=== PATIENT | male | born 1965 | race Caucasian/White ===

== ENCOUNTER 2018-02-06 09:15 | Emergency (ER) | payer OTHER, BC ==
[2018-02-06] MEDS ORDERED: Sodium Chloride 0.9% 10 ML Syringe FLUSH PRN (10:11)
[2018-02-06] MEDS ORDERED: Sodium Chloride 0.9% 1,000 ML IV SCH (10:15)
--- NOTE | 2018-02-06 11:47 | EDM.PDOC ---
ED HPI GENERAL MEDICAL PROBLEM - General Chief Complaint: Cardiovascular Problem Stated Complaint: SENT FROM [facility] Time Seen by Provider: 02/06/18 09:51 Source of Information: Reports: Patient History Limitations: Reports: No Limitations - History of Present Illness INITIAL COMMENTS - FREE TEXT/NARRATIVE: The patient was sent from the walk in clinic for dizziness. He said he woke up this morning not feeling right. He has some dizziness that he describes as lightheadedness. He was at work and had to leave because there was a couple of times that he nearly passed out. He has no chest pain or shortness of breath. He has a slight headache in the frontal area. He recently had a physical at the [facility] and they found his blood pressure was elevated. They did put him on a medicine for this but he did not start taking it yet. He has no double vision, blurred vision, fever, chills, abdominal pain, nausea or vomiting. He does not have much of an appetite now. He was not very active this weekend and did not over exert himself. Onset: Gradual Duration: Hour(s): Location: Reports: Head Quality: Reports: Ache Severity: Mild Improves with: Reports: None Worsens with: Reports: None Associated Symptoms: Reports: Headaches. Denies: Confusion, Chest Pain, Cough, Fever/Chills, Nausea/Vomiting, Shortness of Breath - Related Data Allergies Allergy/AdvReac Type Severity Reaction Status Date / Time anti-diarrheal Allergy Cannot Uncoded 02/06/18 09:45 Remember Home Meds: Home Meds . [Unable to Verify Home Med List] 02/06/18 [History] Past Medical History Cardiovascular History: Reports: Hypertension - Past Surgical History GI Surgical History: Reports: Appendectomy Musculoskeletal Surgical History: Reports: Shoulder Surgery Social & Family History - Tobacco Use Smoking Status *Q: Never Smoker - Caffeine Use Caffeine Use: Reports: Coffee, Soda - Recreational Drug Use Recreational Drug Use: No ED ROS GENERAL - Review of Systems Review Of Systems: See Below Constitutional: Reports: No Symptoms HEENT: Reports: No Symptoms Respiratory: Reports: No Symptoms Cardiovascular: Reports: Lightheadedness. Denies: Chest Pain Endocrine: Reports: No Symptoms GI/Abdominal: Reports: No Symptoms : Reports: No Symptoms Musculoskeletal: Reports: No Symptoms ED EXAM, GENERAL - Physical Exam Exam: See Below Exam Limited By: No Limitations General Appearance: Alert, No Apparent Distress Ears: Normal External Exam Nose: Normal Inspection Head: Atraumatic, Normocephalic Neck: Normal Inspection Respiratory/Chest: No Respiratory Distress, Lungs Clear, Normal Breath Sounds Cardiovascular: Regular Rate, Rhythm, No Edema, No Murmur GI/Abdominal: Soft, Non-Tender, No Organomegaly, No Mass Back Exam: Normal Inspection Extremities: Normal Inspection Neurological: Alert, Oriented, No Motor/Sensory Deficits EKG INTERPRETATION EKG Date: 02/06/18 Time: 11:50 Rhythm: NSR Rate (Beats/Min): 71 [place]: Normal P-Wave: Present QRS: Normal ST-T: Normal QT: Normal Course - Vital Signs Last Recorded V/S: Last Vital Signs Temp 97.2 F 02/06/18 09:45 Pulse 80 02/06/18 09:45 Resp BP 176/109 H 02/06/18 09:45 Pulse Ox 100 02/06/18 09:45 - Orders/Labs/Meds Orders: Active Orders 24 hr Category Date Time Status Cardiac Monitoring [RC] . DIRECTED Care 02/06/18 10:11 Active EKG Documentation Completion [RC] ASDIRECTED Care 02/06/18 10:01 Active Peripheral IV Care [RC] . DIRECTED Care 02/06/18 10:12 Active Head wo Cont [CT] Stat Exams 02/06/18 10:12 Taken Sodium Chloride 0.9% [Normal Saline] 1,000 ml Med 02/06/18 10:15 Active IV .BOLUS Sodium Chloride 0.9% [Saline Flush] Med 02/06/18 10:11 Active 10 ml FLUSH ASDIRECTED PRN Peripheral IV Insertion Adult [OM.PC] Stat Oth 02/06/18 10:11 Ordered EKG 12 Lead [EK] Stat Ther 02/06/18 10:01 Ordered Medication Orders Sodium Chloride (Normal Saline) 1,000 mls @ 1,000 mls/hr IV .BOLUS KENZIE Last Admin: 02/06/18 10:38 Dose: 1,000 mls/hr Sodium Chloride (Saline Flush) 10 ml FLUSH ASDIRECTED PRN PRN Reason: Keep Vein Open Last Admin: 02/06/18 10:38 Dose: 10 ml Labs: Laboratory Tests 02/06/18 02/06/18 Range/Units 10:15 10:15 WBC 5.70 (4.23-9.07) K/mm3 RBC 4.74 (4.63-6.08) M/mm3 Hgb 14.5 (13.7-17.5) gm/L Hct 40.7 (40.1-51.0) % MCV 85.9 (79.0-92.2) fl MCH 30.6 (25.7-32.2) pg MCHC 35.6 H (32.2-35.5) g/dl RDW Std Deviation 37.7 (35.1-43.9) fL Plt Count 236 (163-337) K/mm3 MPV 10.1 (9.4-12.3) fl Neut % (Auto) 70.5 H (34.0-67.9) % Lymph % (Auto) 19.3 L (21.8-53.1) % Hunt % (Auto) 8.2 (5.3-12.2) % Eos % (Auto) 1.4 (0.8-7.0) Baso % (Auto) 0.4 (0.1-1.2) % Neut # (Auto) 4.02 (1.78-5.38) K/mm3 Lymph # (Auto) 1.10 L (1.32-3.57) K/mm3 Hunt # (Auto) 0.47 (0.30-0.82) K/mm3 Eos # (Auto) 0.08 (0.04-0.54) K/mm3 Baso # (Auto) 0.02 (0.01-0.08) K/mm3 Sodium 141 (136-145) mEq/L Potassium 3.3 L (3.5-5.1) mEq/L Chloride 106 (98-107) mEq/L Carbon Dioxide 26 (21-32) mEq/L Anion Gap 12.3 (5-15) BUN 6 L (7-18) mg/dL Creatinine 1.0 (0.7-1.3) mg/dL Est Cr Clr Drug Dosing 90.24 mL/min Estimated GFR (MDRD) > 60 (>60) mL/min BUN/Creatinine Ratio 6.0 L (14-18) Glucose 105 (74-106) mg/dL Calcium 8.5 (8.5-10.1) mg/dL Total Bilirubin 0.5 (0.2-1.0) mg/dL AST 22 (15-37) U/L ALT 43 (16-63) U/L Alkaline Phosphatase 91 (46-116) U/L Troponin I < 0.017 (0.00-0.056) ng/mL Total Protein 6.8 (6.4-8.2) g/dl Albumin 3.6 (3.4-5.0) g/dl Globulin 3.2 gm/dL Albumin/Globulin Ratio 1.1 (1-2) Meds: Medications Generic Name Dose Route Start Last Admin Trade Name Freq PRN Reason Stop Dose Admin Sodium Chloride 1,000 mls @ 1,000 mls/hr 02/06/18 10:15 02/06/18 10:38 Normal Saline IV 1,000 mls/hr .BOLUS KENZIE Administration Sodium Chloride 10 ml 02/06/18 10:11 02/06/18 10:38 Saline Flush FLUSH 10 ml ASDIRECTED PRN Administration Keep Vein Open - Re-Assessments/Exams Free Text/Narrative Re-Assessment/Exam: 02/06/18 11:48 I ordered an IV NS 1L bolus, EKG, labs and CT of his head. His EKG shows a NSR with no acute changes. His CBC and CMP look good. His troponin is negative. I am waiting for the CT of his head. 02/06/18 12:[address] of his head looks good. He feels a little better. I am not exactly sure what is causing his problems. I want him to start his blood pressure meds and see how he is does. Departure - Departure Time of Disposition: 12:30 Disposition: Home, Self-Care 01 Condition: Good Clinical Impression: Lightheaded Hypertension Qualifiers: Hypertension type: essential hypertension Qualified Code(s): I10 - Essential ( primary) hypertension Referrals: PCP,None [Primary Care Provider] - Forms: ED Department Discharge Additional Instructions: Start your blood pressure medication. Rest for a couple of days. Drink plenty of fluids. Follow up with your doctor in 1 week. Please return if you are worse. - My Orders Last 24 Hours: My Active Orders 02/06/18 10:01 EKG Documentation Completion [RC] ASDIRECTED EKG 12 Lead [EK] Stat 02/06/18 10:11 Cardiac Monitoring [RC] . DIRECTED Sodium Chloride 0.9% [Saline Flush] 10 ml FLUSH ASDIRECTED PRN Peripheral IV Insertion Adult [OM.PC] Stat 02/06/18 10:12 Peripheral IV Care [RC] . DIRECTED Head wo Cont [CT] Stat 02/06/18 10:15 Sodium Chloride 0.9% [Normal Saline] 1,000 ml IV .BOLUS - Assessment/Plan Last 24 Hours: My Active Orders 02/06/18 10:01 EKG Documentation Completion [RC] ASDIRECTED EKG 12 Lead [EK] Stat 02/06/18 10:11 Cardiac Monitoring [RC] . DIRECTED Sodium Chloride 0.9% [Saline Flush] 10 ml FLUSH ASDIRECTED PRN Peripheral IV Insertion Adult [OM.PC] Stat 02/06/18 10:12 Peripheral IV Care [RC] . DIRECTED Head wo Cont [CT] Stat 02/06/18 10:15 Sodium Chloride 0.9% [Normal Saline] 1,000 ml IV .BOLUS
--- NOTE | 2018-02-13 13:28 | CT ---
Head CT Technique: Multiple axial sections through the brain were obtained. Intravenous contrast was not utilized. Comparison: Prior head CT exam of 10/13/10. Findings: Ventricles along with basal cisterns and sulci over the convexities are within normal limits for the patient's age. No abnormal parenchymal densities are seen. No evidence of intracranial hemorrhage. No midline shift or mass effect is seen. 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 Bone window settings were reviewed which show no acute calvarial abnormality. Small appearing maxillary sinuses seen bilaterally which show soft tissue opacification which is stable. Impression: 1. Diffuse opacification as well as small appearing maxillary sinuses which is stable from previous exam. 2. Other incidental finding as noted above. No acute intracranial abnormality is identified. Diagnostic code #2 I agree with preliminary report from [facility], finalized at 02/06/18, 12:[address] [facility]
== END 2018-02-06 12:35 | disposition home or self-care (01) ==
LOC: JD.ED 09:15
DX: I10 Essential (primary) hypertension (principal); Z88.8 Allergy status to other drugs, medicaments and biological substances
CPT/HCPCS: 36415; 70450; 80053; 84484; 85025; 93005; 96360; 99285; J7040; J7050; 93010; 99284-25

== ENCOUNTER 2020-02-06 16:00 | Emergency (ER) | payer OTHER ==
--- NOTE | 2020-02-06 16:29 | EDM.PDOC ---
ED HPI GENERAL MEDICAL PROBLEM - General Chief Complaint: Cardiovascular Problem Stated Complaint: HIGH BP Time Seen by Provider: 02/06/20 16:10 Source of Information: Reports: Patient History Limitations: Reports: No Limitations - History of Present Illness INITIAL COMMENTS - FREE TEXT/NARRATIVE: 55-year-old male presents to the ED due to elevated blood pressure over the last several days but particularly today. Blood pressure recordings at home were 20/118 and then 172/113. Blood pressure here is 172/112. He has perhaps a mild pressure in his head but will call in a headache. No neck pain no chest pain no blurred vision. He states he has been on blood pressure medicines for the last 5 years but they have been recently increased due to pressure gradually elevating. He phoned the [place] clinic today and they instructed him to take an extra dose of metoprolol 25 mg which he did at 1300 hrs. today with no benefit. Had a full physical exam 2 weeks ago in clinic and was told his kidney function liver function etc. were all normal. His cholesterol was slightly elevated. No sign of diabetes. Onset: Today, Other (He has labile hypertension gradually worsening over the last several weeks with changes to meds being done.) Duration: Constant, Getting Worse Location: Reports: Other (Labile hypertension.) Quality: Reports: Other (Asymptomatic) Severity: Moderate Improves with: Reports: None Worsens with: Reports: None Context: Denies: Activity, Exercise, Lifting, Sick Contact, Trauma, Other Associated Symptoms: Reports: Other. Denies: No Other Symptoms, Confusion, Chest Pain, Cough, cough w sputum, Diaphoresis, Fever/Chills, Headaches, Loss of Appetite, Malaise, Nausea/Vomiting, Seizure, Shortness of Breath, Syncope Treatments BRONC BUSTER: Reports: Other (see below) (mild preasure in his head but he does not call this a headache. Could dose of metoprolol 25 mg at 1300 hrs. today.) - Related Data Allergies Allergy/AdvReac Type Severity Reaction Status Date / Time anti-diarrheal Allergy Cannot Uncoded 02/06/20 16:16 Remember Home Meds: Home Meds Cholecalciferol (Vitamin D3) [Vitamin D3] 1,000 unit PO DAILY 02/06/20 [History] Losartan [Cozaar] 100 mg PO DAILY 02/06/20 [History] Metoprolol Succinate [Toprol XL 50mg] 50 mg PO DAILY 02/06/20 [History] Prazosin [Minpress] 1 mg PO BID #60 cap 02/06/20 [Rx] amLODIPine Besylate [Amlodipine Besylate] 10 mg PO DAILY #30 tablet 02/06/20 [Rx] Past Medical History Cardiovascular History: Reports: High Cholesterol (Mild hypercholesterolemia.), Hypertension Endocrine/Metabolic History: Reports: Obesity/BMI 30+ - Past Surgical History GI Surgical History: Reports: Appendectomy Musculoskeletal Surgical History: Reports: Shoulder Surgery Social & Family History - Caffeine Use Caffeine Use: Reports: Coffee, Soda - Living Situation & Occupation Living situation: Reports: Occupation: Employed ED ROS GENERAL - Review of Systems Review Of Systems: See Below Constitutional: Reports: Fatigue. Denies: Fever, Chills, Malaise, Weakness HEENT: Reports: Glasses Respiratory: Reports: Shortness of Breath (Patient) Cardiovascular: Reports: Blood Pressure Problem, Dyspnea on Exertion (Occasionally), Lightheadedness. Denies: Chest Pain, Claudication, Edema (Occasional lightheadedness when he gets up from the seated or lying down position.), Orthopnea Endocrine: Denies: Fatigue GI/Abdominal: Reports: No Symptoms, Other : Reports: Frequency (No previous abdominal surgery.), Other Musculoskeletal: Reports: Joint Pain (. Usually x1 or 2.) Skin: Reports: No Symptoms ( Back knees and hips at times) Neurological: Reports: No Symptoms Psychiatric: Reports: No Symptoms Hematologic/Lymphatic: Reports: No Symptoms Immunologic: Reports: No Symptoms ED EXAM, GENERAL - Physical Exam Exam: See Below Exam Limited By: No Limitations General Appearance: Alert, WD/WN, No Apparent Distress, Other (Temperature is 36.6. Heart rate was 103 and sinus respiratory is 18 sats 96% on room air. BP 165 111.) Eye Exam: Bilateral Eye: A-V [place] (Mild AV nicking bilaterally.), PERRL Throat/Mouth: Normal Inspection, Normal Lips, Normal Oropharynx Head: Atraumatic, Normocephalic Neck: Normal Inspection, Supple, Non-Tender, Full Range of Motion. No: Carotid Bruit, Lymphadenopathy (L), Lymphadenopathy (R) Respiratory/Chest: No Respiratory Distress, Lungs Clear, Normal Breath Sounds, Decreased Breath Sounds (Sounds are mildly diminished to the lung bases posteriorly due to his size.) Cardiovascular: Normal Peripheral Pulses, Regular Rate, Rhythm, No Gallop, No Murmur, No Rub. No: No Edema Peripheral Pulses: 2+: Posterior Tibial (L), Posterior Tibial (R), Dorsalis Pedis (L), Dorsalis Pedis (R), 3+: Carotid (L), Carotid (R) GI/Abdominal: Normal Bowel Sounds, Soft, Non-Tender, No Organomegaly, No Abnormal Bruit, No Mass, Pelvis Stable, Other (Abdominal girth limits ability to palpate solid organs. No surgical scars) Back Exam: Normal Inspection, Full Range of Motion. No: CVA Tenderness (L), CVA Tenderness (R) Extremities: Normal Range of Motion (1+ pitting edema both lower extremities.), Non-Tender, Pedal Edema Neurological: Alert, Oriented, CN II-XII Intact, Normal Cognition Psychiatric: Normal Affect, Normal Mood Skin Exam: Warm, Dry, Intact, Normal Color, No Rash Course - Vital Signs Last Recorded V/S: Last Vital Signs Temp 36.6 C 02/06/20 16:12 Pulse 99 02/06/20 17:48 Resp 18 02/06/20 16:12 BP 178/115 H 02/06/20 18:28 Pulse Ox 97 02/06/20 17:48 - Orders/Labs/Meds Orders: Active Orders 24 hr Category Date Time Status Peripheral IV Care [RC] . DIRECTED Care 02/06/20 17:04 Active Sodium Chloride 0.9% [Saline Flush] Med 02/06/20 17:04 Active 10 ml FLUSH ASDIRECTED PRN Peripheral IV Insertion Adult [OM.PC] Stat Oth 02/06/20 17:04 Ordered Medication Orders Sodium Chloride (Saline Flush) 10 ml FLUSH ASDIRECTED PRN PRN Reason: Keep Vein Open Last Admin: 02/06/20 17:18 Dose: 10 ml Documented by: RONNA Meds: Medications Generic Name Dose Route Start Last Admin Trade Name Freq PRN Reason Stop Dose Admin Sodium Chloride 10 ml 02/06/20 17:04 02/06/20 17:18 Saline Flush FLUSH 10 ml ASDIRECTED PRN Administration Keep Vein Open Discontinued Medications Generic Name Dose Route Start Last Admin Trade Name Freq PRN Reason Stop Dose Admin Amlodipine Besylate 10 mg 02/06/20 17:04 02/06/20 17:18 Norvasc PO 02/06/20 17:05 10 mg ONETIME ONE Administration Enalaprilat 1.25 mg 02/06/20 18:18 02/06/20 18:28 Vasotec Iv IVPUSH 02/06/20 18:19 1.25 mg ONETIME ONE Administration Hydralazine HCl 10 mg 02/06/20 17:04 02/06/20 17:18 Apresoline IVPUSH 02/06/20 17:05 10 mg ONETIME ONE Administration Labetalol HCl 20 mg 02/06/20 18:18 02/06/20 18:28 Normodyne IVPUSH 02/06/20 18:19 20 mg ONETIME ONE Administration Protocol - Radiology Interpretation Free Text/Narrative:: 55-year-old male presents to the ED with markedly elevated blood pressure discovered at home today. He is known to be hypertensive and recent medications are being changed to try and bring his blood pressure under control over the last few weeks. He did take an extra dose of metoprolol that the instruction of his physician at the [place] clinic at 1300 hrs. today believed to be a 25 mg tablet. Blood pressure has not gone down. BP at home was 220/122. Second time it was 170/114. Here it is 165/111. He is relatively asymptomatic otherwise. ECG will be done. I am going to watch him for 15 to 20 minutes and if his blood pressure remains elevated such as it is he will require intravenous medications to bring it under control. - Re-Assessments/Exams Free Text/Narrative Re-Assessment/Exam: 02/06/20 17:00: His blood pressure remains markedly elevated at 178 114. Therefore will be given hydralazine 10 mg IV and amlodipine 10 mg p.o. 02/06/20 17:35: Pressure has come down to 151/101. 02/06/20 18:19 pressure has gone back up to 178/115. Therefore going to give him Vasotec 1.25 mg IV with labetalol 20 mg IV bolus. 02/06/20 18:56 pressure has come down to 152/104. He was to be very stubborn on the diastolic side. I am therefore going to discharge him on amlodipine 10 mg once daily at bedtime and prazosin 1 mg in the morning and 1 mg at bedtime in addition to his losartan 100 mg in the morning and metoprolol XL 2 mg once daily in the morning. He will continue to check his blood pressures at home and send them into the [place] clinic and then follow-up with Dr. Webb in 2 weeks time Departure - Departure Time of Disposition: 18:55 Disposition: Home, Self-Care 01 Condition: Fair Clinical Impression: Labile essential hypertension Prescriptions: amLODIPine Besylate [Amlodipine Besylate] 10 mg PO DAILY #30 tablet Prazosin [Minpress] 1 mg PO BID #60 cap Instructions: Managing Your Hypertension Referrals: Violeta Webb MD [Primary Care Provider] - Forms: ED Department Discharge Additional Instructions: Evaluation in the emergency room today in regards to uncontrolled high blood pressure which would cause labile hypertension. It appears that your blood pressure has become very difficult to control and manage over the last several weeks with the introduction of medication to try and bring it under control wit hout good effect. At this time continue metoprolol extended release 50 mg once daily every morning. Add prazosin 1 mg in the morning as well for blood pressure control and continue your losartan 100 mg once daily in the morning as well. In the evening at bedtime you will take amlodipine 10 mg with prazosin 1 mg tablet as well for blood pressure control. You need to follow-up in the [place] clinic with Dr. Webb in the next 2 weeks for blood pressure review. Continue to check your blood pressure at home as well and write down the numbers so that we get a handle on your blood pressure and need for less or more medication. Sepsis Event Note (ED) - Evaluation Sepsis Screening Result: No Definite Risk - Focused Exam Vital Signs: Vital Signs Temp Pulse Resp BP BP Pulse Ox 02/06/20 18:28 178/115 H 02/06/20 17:48 99 162/104 H 97 02/06/20 17:18 162/112 H 02/06/20 16:30 102 H 169/123 H 93 L 02/06/20 16:12 36.6 C 103 H 18 165/111 H 96 - My Orders Last 24 Hours: My Active Orders 02/06/20 17:04 Peripheral IV Care [RC] . DIRECTED Sodium Chloride 0.9% [Saline Flush] 10 ml FLUSH ASDIRECTED PRN Peripheral IV Insertion Adult [OM.PC] Stat - Assessment/Plan Last 24 Hours: My Active Orders 02/06/20 17:04 Peripheral IV Care [RC] . DIRECTED Sodium Chloride 0.9% [Saline Flush] 10 ml FLUSH ASDIRECTED PRN Peripheral IV Insertion Adult [OM.PC] Stat
[2020-02-06] MEDS ORDERED: hydrALAZINE 20 MG/ML SDV IVPUSH ONE (17:04)
[2020-02-06] MEDS ORDERED: Sodium Chloride 0.9% 10 ML Syringe FLUSH PRN (17:04)
[2020-02-06] MEDS ORDERED: amLODIPine 10 MG Tab PO ONE (17:04)
[2020-02-06] MEDS ORDERED: Enalaprilat 1.25 MG/ML SDV IVPUSH ONE (18:18)
[2020-02-06] MEDS ORDERED: Labetalol 100 MG/20 ML MDV IVPUSH ONE (18:18)
== END 2020-02-06 19:05 | disposition home or self-care (01) ==
LOC: JD.ED 16:00
DX: I10 Essential (primary) hypertension (principal); E66.9 Obesity, unspecified; Z68.37 Body mass index [BMI] 37.0-37.9, adult; Z88.8 Allergy status to other drugs, medicaments and biological substances
CPT/HCPCS: 96374; 96375; 99283; 99283-25; A9270-GY; J0360; J3490

== ENCOUNTER 2021-09-29 22:13 | Emergency (ER) | payer OTHER ==
[2021-09-29] MEDS ORDERED: Morphine 4 MG/ML Syringe IVPUSH ONE ×2 (22:37→23:07)
[2021-09-29] MEDS ORDERED: Ondansetron 4 MG/2 ML SDV IVPUSH ONE (22:37)
== END 2021-09-30 00:45 | disposition home or self-care (01) ==
LOC: JD.ED 22:13
DX: M25.561 Pain in right knee (principal); Z88.8 Allergy status to other drugs, medicaments and biological substances
CPT/HCPCS: 72192; 73502; 73562; 96374; 96375; 99284; J2270; J2405; 29505; 99285

== ENCOUNTER 2023-06-10 14:54 | Emergency (ER) | payer OTHER | END 2023-06-10 22:00 | disposition home or self-care (01) | LOC: JD.ED 14:54 | DX: M25.562 Pain in left knee (principal); I10 Essential (primary) hypertension; E78.00 Pure hypercholesterolemia, unspecified; E66.9 Obesity, unspecified; Z86.16 Personal history of COVID-19; Z68.38 Body mass index [BMI] 38.0-38.9, adult | CPT/HCPCS: 73562-26-LT; 73562-LT; 99283 ==

== ENCOUNTER 2023-09-22 09:00 | Day surgery (SDC) | payer OTHER ==
[~2023-09-22 09:00] MED LIST: Sodium Chloride 0.9% 10 ML Syringe FLUSH PRN; Sodium Chloride 0.9% 10 ML Syringe FLUSH SCH
[2023-09-22] MEDS: Lactated Ringers 1,000 ML IV SCH (09:49)
[2023-09-22 09:54] LABS: A/G RATIO 1.2 (1-2); ALBUMIN 3.7 g/dl (3.4-5.0); ANION GAP 14.1 (5-15); BILIRUBIN TOTAL 0.5 mg/dL (0.2-1.0); BUN/CREATININE RATIO 16.2 (14-18); CALCIUM 8.9 mg/dL (8.5-10.1); CREATININE 1.3 mg/dL (0.7-1.3); EST CRCL DRUG DOSING (CG) 65.51 mL/min; POTASSIUM,K 3.1 mEq/L (3.5-5.1); PROTEIN TOTAL,TP 6.9 g/dl (6.4-8.2)
[2023-09-22] MEDS ORDERED: Ondansetron 4 MG/2 ML SDV IVPUSH PRN (10:58)
[2023-09-22] MEDS ORDERED: HYDROmorphone 0.5 MG/0.5 ML Syringe IVPUSH PRN (10:58)
[2023-09-22] MEDS ORDERED: fentaNYL 100 MCG/2 ML SDV IVPUSH PRN (10:58)
[2023-09-22] MEDS ORDERED: Midazolam 1 MG/ML 2 ML SDV ONE (11:03)
[2023-09-22] MEDS ORDERED: fentaNYL 250 MCG/5 ML SDV ONE (11:03)
[2023-09-22] MEDS ORDERED: Propofol 200 MG/20 ML SDV ONE ×2 (11:03→11:05)
[2023-09-22] MEDS ORDERED: ceFAZolin 2 GM Vial ONE (11:47)
[2023-09-22] MEDS ORDERED: Lactated Ringers 1,000 ML IV ONE (12:00)
[2023-09-22] MEDS ORDERED: Ondansetron 4 MG/2 ML SDV ONE (12:11)
[2023-09-22] MEDS: Bupivacaine 0.25% 10 ML SDV ONE (12:18)
[2023-09-22] MEDS: EPINEPHrine 1 MG/ML SDV ONE (12:18)
[2023-09-22] MEDS ORDERED: Dexamethasone 4 MG/ML 5 ML MDV ONE (12:30)
== END 2023-09-22 13:57 | disposition home or self-care (01) ==
LOC: JD.SDS 09:00
PROVIDERS: ATTEND Orthopaedic Surgery
DX: M17.12 Unilateral primary osteoarthritis, left knee (principal); I10 Essential (primary) hypertension; F32.A Depression, unspecified; Z79.899 Other long term (current) drug therapy
CPT/HCPCS: 29877; 36415; 80053; J0171; J0690; J1100; J2250; J2405; J2704; J3010; J3490; J7120; 01400

== ENCOUNTER 2024-05-29 17:05 | Emergency (ER) | payer OTHER ==
[2024-05-29] MEDS ORDERED: Naloxone 0.4 MG/ML SDV IVPUSH PRN (18:22)
[2024-05-29 18:26] LABS: APPEARANCE,URINE CLEAR (Clear); BILIRUBIN,URINE NEGATIVE (Negative); COLOR,URINE YELLOW (Yellow); GLUCOSE,URINE NEGATIVE (Negative); KETONES,URINE TRACE (Negative); LEUKOCYTE ESTERASE,URINE NEGATIVE (Negative); NITRITE,URINE NEGATIVE (Negative); OCCULT BLOOD,URINE NEGATIVE (Negative); PROTEIN,URINE NEGATIVE (Negative)
[2024-05-29] MEDS: HYDROmorphone 0.5 MG/0.5 ML Syringe IM ONE (18:30)
[2024-05-29 18:36] LABS: BASOPHILS PERCENT AUTO 0.3 % (0.0-1.0); EOSINOPHILS ABSOLUTE AUTO 0.1 K/mm3 (0.0-0.4); EOSINOPHILS PERCENT AUTO 1.6 % (0.0-6.0); HEMATOCRIT 39.2 % (42.0-52.0); HEMOGLOBIN 13.8 gm/dl (14.0-18.0); IMMATURE GRAN ABSOLUTE AUTO 0.03 K/mm3 (0.00-0.05); IMMATURE GRAN PERCENT AUTO 0.4 % (0.0-0.4); LYMPHOCYTES ABSOLUTE AUTO 0.9 K/mm3 (1.0-4.8); LYMPHOCYTES PERCENT AUTO 13.8 % (24.0-44.0); MEAN CORPUSCULAR HEMOGLOBIN 30.9 pg (28.0-32.0); MEAN CORPUSCULAR HGB CONC 35.2 g/dl (32.0-36.0); MEAN CORPUSCULAR VOLUME 87.9 fl (83.0-99.0); MEAN PLATELET VOLUME 10.1 fl (9.4-12.4); MONOCYTES ABSOLUTE AUTO 0.5 K/mm3 (0.0-0.8); MONOCYTES PERCENT AUTO 6.6 % (0.0-8.0); NEUTROPHILS ABSOLUTE AUTO 5.3 K/mm3 (1.8-7.7); NEUTROPHILS PERCENT AUTO 77.3 % (41.0-71.0); PLATELET COUNT,PLT 234 K/mm3 (150-400); RED BLOOD CELL COUNT 4.46 M/mm3 (4.52-5.90); WHITE BLOOD CELL COUNT,WBC 6.81 K/mm3 (3.9-11.3)
[2024-05-29 19:19] LABS: A/G RATIO 1.1 (1-2); ALBUMIN 3.7 g/dl (3.4-5.0); ANION GAP 15.3 (5-15); BILIRUBIN TOTAL 0.5 mg/dL (0.2-1.0); BUN/CREATININE RATIO 13.8 (14-18); CALCIUM 9.3 mg/dL (8.5-10.1); CREATININE 1.3 mg/dL (0.7-1.3); EST CRCL DRUG DOSING (CG) 62.69 mL/min; POTASSIUM,K 3.3 mEq/L (3.5-5.1); PROTEIN TOTAL,TP 7.2 g/dl (6.4-8.2)
== END 2024-05-29 19:50 | disposition home or self-care (01) ==
LOC: JD.ED 17:05
DX: N20.0 Calculus of kidney (principal); I10 Essential (primary) hypertension; E13.9 Other specified diabetes mellitus without complications; Z79.899 Other long term (current) drug therapy; Z86.16 Personal history of COVID-19; Z90.49 Acquired absence of other specified parts of digestive tract
CPT/HCPCS: 36415; 80053; 81003; 85025; 96372; 99284; J1171

== ENCOUNTER 2024-06-12 11:50 | Emergency (ER) | payer OTHER ==
[2024-06-12] MEDS ORDERED: Sodium Chloride 0.9% 10 ML Syringe FLUSH PRN (12:24)
[2024-06-12 12:33] LABS: BASOPHILS PERCENT AUTO 0.2 % (0.0-1.0); EOSINOPHILS ABSOLUTE AUTO 0.1 K/mm3 (0.0-0.4); EOSINOPHILS PERCENT AUTO 2.3 % (0.0-6.0); HEMATOCRIT 35.6 % (42.0-52.0); HEMOGLOBIN 12.1 gm/dl (14.0-18.0); IMMATURE GRAN ABSOLUTE AUTO 0.01 K/mm3 (0.00-0.05); IMMATURE GRAN PERCENT AUTO 0.2 % (0.0-0.4); LYMPHOCYTES ABSOLUTE AUTO 1.1 K/mm3 (1.0-4.8); LYMPHOCYTES PERCENT AUTO 19.9 % (24.0-44.0); MEAN CORPUSCULAR HEMOGLOBIN 30.8 pg (28.0-32.0); MEAN CORPUSCULAR VOLUME 90.6 fl (83.0-99.0); MEAN PLATELET VOLUME 10.7 fl (9.4-12.4); MONOCYTES ABSOLUTE AUTO 0.5 K/mm3 (0.0-0.8); MONOCYTES PERCENT AUTO 9.8 % (0.0-8.0); NEUTROPHILS ABSOLUTE AUTO 3.6 K/mm3 (1.8-7.7); NEUTROPHILS PERCENT AUTO 67.6 % (41.0-71.0); PLATELET COUNT,PLT 299 K/mm3 (150-400); RED BLOOD CELL COUNT 3.93 M/mm3 (4.52-5.90); WHITE BLOOD CELL COUNT,WBC 5.32 K/mm3 (3.9-11.3)
[2024-06-12] MEDS: Sodium Chloride 0.9% 1,000 ML IV STA (12:35)
[2024-06-12] MEDS: Ondansetron 4 MG/2 ML SDV IVPUSH ONE (12:36)
[2024-06-12] MEDS: HYDROmorphone 0.5 MG/0.5 ML Syringe IVPUSH ONE ×2 (12:37→15:37)
[2024-06-12] MEDS: Pantoprazole 40 MG Vial IVPUSH ONE (12:39)
[2024-06-12 12:53] LABS: ALBUMIN 3.6 g/dl (3.4-5.0); ANION GAP 17.1 (5-15); BILIRUBIN TOTAL 0.6 mg/dL (0.2-1.0); CALCIUM 9.4 mg/dL (8.5-10.1); CREATININE 1.4 mg/dL (0.7-1.3); EST CRCL DRUG DOSING (CG) 58.22 mL/min; MAGNESIUM 1.7 mg/dL (1.8-2.4); POTASSIUM,K 3.1 mEq/L (3.5-5.1); PROTEIN TOTAL,TP 7.3 g/dl (6.4-8.2)
[2024-06-12] MEDS: Iopamidol 612 MG/ML 100 ML Bottle IVPUSH ONE (12:55)
[2024-06-12 13:16] LABS: INR 1.11; PROTHROMBIN TIME 11.7 SECONDS (9.7-12.0)
[2024-06-12 13:18] LABS: PTT,PARTIAL THROMBOPLSTIN TIME 29.4 SECONDS (21.7-31.4)
[2024-06-12] MEDS: cefTRIAXone 2 GM in Sodium Chloride 0.9% 100 ML IV ONE (14:25)
[2024-06-12] MEDS: Metoclopramide 10 MG/2 ML SDV IVPUSH ONE (15:41)
== END 2024-06-12 16:55 | disposition home or self-care (01) ==
LOC: JD.ED 11:50
DX: K57.32 Diverticulitis of large intestine without perforation or abscess without bleeding (principal); K29.80 Duodenitis without bleeding; I10 Essential (primary) hypertension; Z86.16 Personal history of COVID-19; Z90.49 Acquired absence of other specified parts of digestive tract; Z96.649 Presence of unspecified artificial hip joint; Z79.899 Other long term (current) drug therapy
CPT/HCPCS: 36415; 74177; 74177-26; 80053; 83690; 83735; 85025; 85610; 85730; 96361; 96365; 96375; 96376; 99284-25; J0696; J1171; J2405; J2470; J2765; J3490; J7030; Q9967

== ENCOUNTER 2024-06-17 03:58 | Emergency (ER) | payer OTHER ==
[2024-06-17 04:10] LABS: BASOPHILS PERCENT AUTO 0.3 % (0.0-1.0); EOSINOPHILS ABSOLUTE AUTO 0.2 K/mm3 (0.0-0.4); EOSINOPHILS PERCENT AUTO 3.6 % (0.0-6.0); HEMATOCRIT 30.9 % (42.0-52.0); HEMOGLOBIN 10.6 gm/dl (14.0-18.0); IMMATURE GRAN ABSOLUTE AUTO 0.02 K/mm3 (0.00-0.05); IMMATURE GRAN PERCENT AUTO 0.3 % (0.0-0.4); LYMPHOCYTES ABSOLUTE AUTO 1.9 K/mm3 (1.0-4.8); LYMPHOCYTES PERCENT AUTO 29.4 % (24.0-44.0); MEAN CORPUSCULAR HEMOGLOBIN 31.2 pg (28.0-32.0); MEAN CORPUSCULAR HGB CONC 34.3 g/dl (32.0-36.0); MEAN CORPUSCULAR VOLUME 90.9 fl (83.0-99.0); MEAN PLATELET VOLUME 9.8 fl (9.4-12.4); MONOCYTES ABSOLUTE AUTO 0.4 K/mm3 (0.0-0.8); MONOCYTES PERCENT AUTO 6.7 % (0.0-8.0); NEUTROPHILS ABSOLUTE AUTO 3.8 K/mm3 (1.8-7.7); NEUTROPHILS PERCENT AUTO 59.7 % (41.0-71.0); PLATELET COUNT,PLT 391 K/mm3 (150-400); WHITE BLOOD CELL COUNT,WBC 6.43 K/mm3 (3.9-11.3)
[2024-06-17] MEDS: Pantoprazole 40 MG Vial IVPUSH ONE (04:17)
[2024-06-17] MEDS: Sodium Chloride 0.9% 1,000 ML IV ONE (04:17)
[2024-06-17] MEDS: Sodium Chloride 0.9% 10 ML Syringe FLUSH ONE (04:18)
[2024-06-17] MEDS: Pantoprazole 80 MG in Sodium Chloride 0.9% 100 ML IV ONE (04:18)
[2024-06-17 04:28] LABS: INR 1.15; PROTHROMBIN TIME 12.1 SECONDS (9.7-12.0)
[2024-06-17 04:29] LABS: PTT,PARTIAL THROMBOPLSTIN TIME 25.2 SECONDS (21.7-31.4)
[2024-06-17 04:40] LABS: ALBUMIN 3.1 g/dl (3.4-5.0); BILIRUBIN TOTAL 0.6 mg/dL (0.2-1.0); BUN/CREATININE RATIO 13.9 (14-18); CALCIUM 8.7 mg/dL (8.5-10.1); CREATININE 1.8 mg/dL (0.7-1.3); EST CRCL DRUG DOSING (CG) 46.75 mL/min; MAGNESIUM 1.4 mg/dL (1.8-2.4); PROTEIN TOTAL,TP 6.2 g/dl (6.4-8.2)
[2024-06-17] MEDS: Iopamidol 755 Mg/ML 100 ML Bottle IVPUSH ONE (04:41)
[2024-06-17] MEDS: Sodium Chloride 0.9% 100 ML IV SCH (04:41)
[2024-06-17] MEDS: Sodium Chloride 0.9% 10 ML Syringe FLUSH PRN (04:41)
[2024-06-17] MEDS ORDERED: Sodium Chloride 0.9% 250 ML ONE (05:22)
[2024-06-17] MEDS ORDERED: Sodium Chloride 0.9% 250 ML IV SCH (05:30)
== END 2024-06-17 08:30 ==
LOC: JD.ED 03:58
DX: K92.2 Gastrointestinal hemorrhage, unspecified (principal); K92.0 Hematemesis; K26.9 Duodenal ulcer, unspecified as acute or chronic, without hemorrhage or perforation; I10 Essential (primary) hypertension; Z86.16 Personal history of COVID-19; Z90.49 Acquired absence of other specified parts of digestive tract; Z79.899 Other long term (current) drug therapy
CPT/HCPCS: 36415; 36430; 74175; 74175-26; 80053; 83605; 83690; 83735; 84484; 85025; 85610; 85730; 86850; 86900; 86901; 86922; 93005; 96365; 96366; 99285-25; J2470; J3490; J7030; P9016; Q9967